=== PATIENT | male | born 1925 | race Caucasian/White ===

== ENCOUNTER 2016-06-15 13:37 | Observation (INO) | payer MEDICARE, BC ==
--- OUTSIDE RECORDS SUMMARY | 2016-06-15 13:44 | XMS REPORT | Continuity of Care Document ---
:1925 Demographics Phone Unavailable Preferred Language Unknown Marital Status Unknown [employer] Affiliation Unknown Race Unknown Ethnic Group Unknown Author Organization [facility] ([facility]) Address [place] [address] Phone [phone] Care Team Providers Name Role Phone Unavailable Primary Care Provider Unavailable Source Comments This disclosure is being made pursuant to the Care Everywhere program, applicable federal and state laws, and may not contain all informaitonavailable regarding this patient.[facility] ([facility]) Active Allergies and Adverse Reactions Not on File Current Medications Not on file Active Problems Not on file Social History Tobacco Use Types Packs/Day Years Used Date Never Assessed Plan of Care Health Maintenance Due Date Last Done Comments Hepatitis B Vaccine (1 of 3 - Primary Series) 1925 Tdap Vaccine 11/20/1938 Lipid Disorder Screening 11/20/1945 Td Vaccine 11/20/1945 Zoster Vaccine 1987 Pneumococcal Vaccine (1 of 2 - PCV13) 11/20/1992 Influenza Vaccine: Seasonal (#1) 11/01/2015 Results from Last 3 Months Not on file
[2016-06-15] MEDS ORDERED: DIATRIZOATE MEGLU/DIATRIZO SOD 30 ML BTL PO ONE (14:58)
[2016-06-15 15:07] LABS: Hematocrit 45.7 % (42.0-52.0); Hemoglobin 15.3 gm/dL (13.5-18.0); Mean Corpuscular Hemoglobin 31.8 pg (27-31); Mean Corpuscular Hgb Conc 33.5 g/dl (32-36); Mean Platelet Volume 9.5 fl (6.0-9.5); Neutrophil # 5.1 K/mm3 (1.3-6.0); Platelet Count 203 K/mm3 (150-450); Red Blood Count 4.81 M/mm3 (4.7-6.0); Red Cell Distribution Width 13.7 % (11.5-14.0); White Blood Count 6.8 K/mm3 (4.0-10.5)
[2016-06-15 15:11] LABS: Albumin * 3.3 gm/dl (3.4-5.0); Anion Gap 12.9 mmol/L (6.8-13.8); BUN/Creatinine Ratio 14.8 (9.0-21.6); CRP 2.7 mg/dL (0.0-0.9); Calcium * 8.8 mg/dL (7.9-10.9); Carbon Dioxide 28.5 mmol/L (24-32.6); Potassium 4.4 mmol/L (3.4-4.6); Total Protein 7.4 gm/dL (6.2-8.2)
[2016-06-15] MEDS ORDERED: DEXTROSE 5%-0.5 NORMAL SALINE 1,000 ML IV PRN (20:31)
--- NOTE | 2016-06-16 08:04 | PN ---
Progess Note - Interim Narrative: 06/16/16 08:03 CTS showed no bowel wall thickening. Multiple cyst in kideny, possible solid lesion left kidney, GB distention. await US of bellaeny and GB. for discharge today.
[2016-06-16 10:21] VITALS: BP 148/80
--- NOTE | 2016-06-16 12:09 | DS ---
Description of Stay: Tom Mcmanus, is a 89-year-old white male, with previous medical history of Parkinson's disease, Gout, osteoarthritis , who followed up in my office on 06/15/2016 for continuing abdominal pain. On 06/14/[address] Rowan for abdominal pain which he described as dull , 6/10, diffuse, not associated with nausea, vomiting, diarrhea, or constipation. This started 2 days before his office visit. Dr. Rowan did a KUB and it showed a thickened colon bowel wall on the right side with differential diagnoses including inflammatory/colitis versus bowel wall edema from an inflammatory process near the area. He was then admitted for observation ans a CT scan of his abdomen was done per recommendation of radiology. CT scan showed diverticultuosis w/o diverticulitis, no acute intra-abdominal findings except for multiple kidney cysts with a suspicious solid lesion on the left kidney. It also showed gall bladder wall thickening but bowel wall thickening.Per recommendation renal ultrasound and a gallbladder ultrasound were done this morning. It showed no solid lesion in the kidney but did show multiple kidney cysts. His gallbladder ultrasound showed no evidence of cholecystitis. Patient is stable to be discharged today he still has some abdominal pain but he says it's mostly increased with coughing which she has been experiencing for the last week. He is stable to be discharge with high fiber diet. Procedures Performed: none Discharge Disposition: Other HealthCare facility - [facility] Disposition: Other health care facility Condition: Good Discharge Activity: Activity as tolerated Discharge Diet: General/regular food Referrals: Soto Juarez MD [Primary Care Provider] - Additional Patient Instructions (free text): follow up with PCP in 2 weeks Prescriptions (Any new or edited meds): guaiFENesin [Mucinex] 600 mg PO BID #14 tablet.sa Complete Home Medications List: Complete Home Medication List: Allopurinol [Zyloprim] 300 mg PO DAILY 09/20/12 Amantadine HCl [Amantadine] 100 mg PO BID 09/20/12 Tamsulosin HCl [Flomax] 0.4 mg PO 2000 09/20/12 Finasteride [Proscar] 5 mg PO Q48H 04/08/15 Pramipexole Di-HCl [Mirapex] 0.125 mg PO TID 04/08/15 Acetaminophen [Tylenol Arthritis] 650 mg PO TID 06/15/16 Furosemide [Lasix] 20 mg PO DAILY 06/15/16 guaiFENesin [Mucinex] 600 mg PO BID #14 tablet.sa 06/16/16
[2016-06-17 16:09] LABS: P-ANCA Titer DNR titer (<1:20)
== END 2016-06-16 14:02 | disposition home or self-care (01) ==
LOC: MS 13:37
PROVIDERS: ADMIT Internal Medicine; ATTEND Internal Medicine
DX: R10.11 Right upper quadrant pain (principal); N28.1 Cyst of kidney, acquired; R73.02 Impaired glucose tolerance (oral); N40.0 Benign prostatic hyperplasia without lower urinary tract symptoms; G20 Parkinson's disease; M10.9 Gout, unspecified; M19.90 Unspecified osteoarthritis, unspecified site
CPT/HCPCS: 36415; 74178; 76705; 76775; 80053; 85025; 85652; 86021; 86140; 87081; G0378; G0379

== ENCOUNTER 2016-07-15 09:16 | Emergency (ER) | payer MEDICARE, BC ==
--- OUTSIDE RECORDS SUMMARY | 2016-07-15 10:17 | XMS REPORT | Continuity of Care Document ---
:1925 Demographics Phone Unavailable Preferred Language Unknown Marital Status Unknown Confucianism Affiliation Unknown Race Unknown Ethnic Group Unknown Author Organization [facility] ([facility]) Address [place] [address] Phone [phone] Care Team Providers Name Role Phone Unavailable Primary Care Provider Unavailable Source Comments This disclosure is being made pursuant to the Care Everywhere program, applicable federal and state laws, and may not contain all informaitonavailable regarding this patient.[facility] ([facility]) Active Allergies and Adverse Reactions Not on [...]
[2016-07-15 10:43] LABS: Hematocrit 41.8 % (42.0-52.0); Hemoglobin 13.5 gm/dL (13.5-18.0); Mean Cell Volume 97.2 fl (78-100); Mean Corpuscular Hemoglobin 31.4 pg (27-31); Mean Corpuscular Hgb Conc 32.3 g/dl (32-36); Mean Platelet Volume 9.6 fl (6.0-9.5); Neutrophil # 4.1 K/mm3 (1.3-6.0); Neutrophil % 75.1 % (42-75.0); Platelet Count 228 K/mm3 (150-450); Red Cell Distribution Width 12.9 % (11.5-14.0); White Blood Count 5.5 K/mm3 (4.0-10.5)
[2016-07-15 10:55] LABS: Urine Bilirubin Negative (NEGATIVE); Urine Blood Negative /ul (NEGATIVE); Urine Ketone Negative (NEGATIVE); Urine Nitrite Negative (NEGATIVE); Urine Protein Negative (NEGATIVE); Urine Specific Gravity 1.025 SP.GR. (1.005-1.030); Urine Urobilinogen Normal (NORMAL); Urine pH 5.5 pH (5.0-7.0)
[2016-07-15 10:56] LABS: Albumin * 3.1 gm/dl (3.4-5.0); Anion Gap 8.9 mmol/L (6.8-13.8); BUN/Creatinine Ratio 23.9 (9.0-21.6); Bilirubin, Total 1.1 mg/dL (0.0-1.1); Ca. Corrected For Albumin 9.9 mg/dL (8.4-10.2); Calcium * 9.5 mg/dL (7.9-10.9); Carbon Dioxide 31.3 mmol/L (24-32.6); Potassium 4.2 mmol/L (3.4-4.6); Total Protein 7.5 gm/dL (6.2-8.2)
[2016-07-15 10:56] LABS: Urine Appearance Clear; Urine Bacteria None Seen; Urine Color Yellow; Urine RBC None Seen /hpf (0-5); Urine WBC None Seen /hpf (0-5)
--- NOTE | 2016-07-15 12:03 | ERNOTE ---
Medical Problem HPI - Narrative Date of Service: 07/15/16 - General Chief Complaint: General Assessment Time Seen by Provider: 07/15/16 10:08 - Immun/Allergies/Home Medications Immunizations: IMMUNIZATION HX History of Influenza Vaccine Yes Hx Pneumococcal Vaccination More Information Required Allergies/Adverse Reactions: Allergies celecoxib [From Celebrex] Allergy (Unknown, Verified 07/15/16 09:30) acetaminophen [From Vicodin] Adverse Reaction (Verified 07/15/16 09:30) hydrocodone bitartrate [From Vicodin] Adverse Reaction (Verified 07/15/16 09:30) Home Medications: HOME MEDICATIONS Allopurinol [Zyloprim] 300 mg PO DAILY 09/20/12 [Last Taken 09/20/12 08:00] Amantadine HCl [Amantadine] 100 mg PO BID 09/20/12 [Last Taken 09/20/12 08:00] Tamsulosin HCl [Flomax] 0.4 mg PO 199909/20/12 [Last Taken 09/19/12 20:00] Finasteride [Proscar] 5 mg PO Q48H 04/08/15 [Last Taken Unknown] Pramipexole Di-HCl [Mirapex] 0.125 mg PO TID 04/08/15 [Last Taken Unknown] Furosemide [Lasix] 20 mg PO DAILY 06/15/16 [Last Taken Unknown] Tramadol HCl 50 mg PO TID 07/15/16 [Last Taken Unknown] - History of Present History Narrative: PT IS HERE BECAUSE HE IS JUST NOT FEELING RIGHT SINCE SUNDAY WITH SOME LIGHTHEADEDNESS. . NO FEVER , SOME NAUSEA . N O VOMITING OR DIARRHEA OR CONSTIPATION. HE SAYS HE HAS HAD NO SOFT BM'S THE PAST TWO MORNINGS. HE DENIES UTI SX. HE DOES HAVE A CHRONIC THROAT CLEARING COUGH THAT HE HAS HAD EXPLAINED TO HIM IS FROM HIS PARKINSON'S WITH IS FAIRLY ADVANCED. HE SAYS HE HAS NO PROBLEMS SWALLOWING THOUGH. HE HAS HAD SOME CHRONIC RIGHT SIDED ABDOMINAL COMPLAINTS FOR WHICH HIS DRAshok HAS DONE CT SCAN AND ULTRASOUNDS WHICH THEY SAY SHOWED NO ACUTE PROBLEMS. HE DENIES ANY RECENT MED CHANGES OR DOSAGE CHANGES. HE DOES LIVE IN AN [place] AND MANAGES HIS OWN MEDS BUT DOES NOT THINK HE MIXED UP ANY OF HIS DOSAGES. HIS DAUGHTER , WITH HIM TODAY , THINKS HE IS CAPABLE OF INDEPENDENT LIVING. THEY HAVE NOT D/W PCP HIS CURRENT COMPLAINTS. Review of Systems - Review of Systems Constitutional: Present: See HPI EYE: Present: no symptoms reported ENT: Present: no symptoms reported Respiratory: Present: See HPI Cardiology: Present: no symptoms reported Gastrointestinal/Abdominal: Present: See HPI, abdominal pain Genitourinary: Present: no symptoms reported Musculoskeletal: Present: no symptoms reported - STATES PARKINSONS IS STABLE THOUGH ADVANCED. Skin: Present: no symptoms reported Neurological: Present: See HPI, dizziness/light-headedness Endocrine: Present: no symptoms reported Hematologic/Lymphatic: Present: no symptoms reported Psych: Present: no symptoms reported All Other Systems: All systems neg except as marked - Patient's Past Medical History Patient History - Medical: Other - SEVERE PARKINSONS Patient History - Cardiac/Respiratory: No pertinent hx Patient History - Cancer: Skin Patient History - Surgical Procedures: Other Patient History - Other: None - Family History Mother Family History - Medical: Family History - Cardiac/Respiratory: No pertinent hx Family History - Cancer: Breast Father Family History - Medical: - Social History Living Situations: home Abuse History: No History of abuse Psych History: No pertinent hx Smoking Status: Former smoker Alcohol Use: none Drug Use: none - Immunizations Hx Pneumococcal Vaccination: More Information Required to Determine History of Influenza Vaccine: Yes Physical Exam - Physical Exam General Appearance: Present: wd/wn, alert, moderate distress - HE IS A SOFT SPOKEN , SLOW TALKING , ELDERLY MAN WITH RESTING TREMOR AND GENERALIZED WEAKNESS CONSSISTENT WITH ADVANCE PARKINSONS. HE ISS A & O & COOP WITH NO CURRENT DISTRESS. Ears, Nose, Throat: Present: normal ENT inspection Neck: Present: normal inspection Respiratory: Present: no respiratory distress, normal breath sounds, no accessory muscle use, chest nontender, lungs clear Cardiovascular/Chest: Present: regular rate, rhythm, no murmur, normal peripheral pulses Peripheral Pulses: N=norm/S=strong/W=weak/B=bound/A=absent: Femoral (R): Normal , Femoral (L): Normal, Dorsalis-pedis (R): Normal, Dorsalis-pedis (L): Normal Gastrointestinal/Abdominal: Present: normal bowel sounds, nondistended, soft, no organomegaly, tenderness - MILD TENDERNESS TO RIGHT SIDE OF ABDOMEN , NO MASSES , NO POINT TENDERNESS , MINIMAL GUARDING AND NO REBOUND. Extremity Exam: Present: non-tender, normal range of motion, pedal edema - LEFT LOWER LEG EDEMA FOR WHICH HE WEARS BILATERAL TRACI HOSE. DAUGHTER AND HE SAYS CURRENT SWELLING IS NORMAL FOR HIM. , other - GENERAL TREMOR AT REST. Neurological Exam: Present: alert, oriented, motor weakness, other - FLAT AFFECT CONSSISTENT WITH HISS PRIMARY ILLNESS. Skin Exam: Present: normal color ED Progress - Date and Time Seen: Date and Time: 07/15/16 12:29 I REVIEWED HIS RECENT ABDOMINAL WORKUP DONE 3 WEEKS AGO AND SEE NOTHING ALARMING THERE AND DO NOT THINK BASED ON TODAYS FINDING ANOTHER ULTRASOUND OR CT IS WARRANTED TODAY. HE MAY BENEFIT FROM A HIDA SCAN THAT CAN BE ARRANGED BY HIS FAMILY DOCTOR IF HE AGREES PT'S SX COULD BE FROM POORLY FUNCTIONING GALLBLADDER. - Results and Orders Patient's Lab Results:: I have reviewed the patient's lab results. Results and Orders: CBC, CMP AND URINE ALL WNL - Vital Signs Patient's Vital Signs:: I have reviewed the patient's vital signs. Vital Signs: Vital Signs 07/15/16 07/15/16 07/15/16 09:25 10:52 11:37 Temperature 36.7 C 36.5 C Pulse Rate 85 86 60 Respiratory 12 16 14 Rate Blood Pressure 146/50 151/50 147/58 O2 Sat by Pulse 94 94 95 Oximetry - X-Ray X-Ray #1 X-Ray: abdomen Interpretation: Interp. by me - NORMAL - Progress/Reassessment Chief Complaint: General Assessment Departure - Departure Clinical Impression: Abdominal pain of unknown cause Disposition: Home Follow Up Needed Condition: Fair Instructions: Abdominal Pain, Adult, [id number] Additional Instructions: I SEE NO SPECIFIC CAUSE OF YOUR LIGHTHEADEDNESS OR ABDOMINAL PAINS. I REVIEWED YOUR RECENT ABDOMINAL AND KIDNEY ULTRASOUNDS AND ABDOMINAL CT SCANS AND TODAYS CURRENT ABDOMINAL XRAY AND LAB WORK AND SEE NOTHING SPECIFICALLY ABNORMAL. PARKINSON'S HAS GOOD DAYS AND BAD DAYS AND TENDS TO PROGRESS WITH TIME SO THAT MAY BE PART OF THE PROBLEM. TRY TO STAY ON LIGHT DIET WITH LOW FATS AND ENCOURAGE GOOD DAILY FLUID INTAKE. RETURN IF WORSE. CALL YOUR DR ON SUNDAY TO DISCUSS IF THE HAVE OTHER SUGGESTIONS . SOMETIMES MEDICATION ADJUSTMENTS ARE NEEDED IN [place]. YOU MAY NEED FURTHER ABDOMINAL EVALUATION LIKE A COLONOSCOPY OR UPPER ENDOSCOPY OR A NUCLEAR SCAN OF THE GALLBLADDER TO TESTS ITS FUNCTIONING. LET THEM KNOW YOUR WERE SEEN HERE TODAY. Referrals: Soto Juarez MD [Primary Care Provider] -
[2016-07-15 12:32] VITALS: BP 156/60
== END 2016-07-15 12:36 | disposition home or self-care (01) ==
LOC: ER 09:16
DX: R10.9 Unspecified abdominal pain (principal); Z85.828 Personal history of other malignant neoplasm of skin; G20 Parkinson's disease